=== PATIENT | male | born 1940 | race Caucasian/White ===

== ENCOUNTER 2016-11-16 00:48 | Day surgery (SDC) | payer MEDICARE ==
[2016-11-16] VITALS (13 sets, daily range): BP systolic 105–153; BP diastolic 67–83; PULSE 54–136; RESP 10–15; O2SAT 97–98
[~2016-11-16] VITALS: Ht 181.6 cm; Wt 100.2 kg
[~2016-11-16 00:48] MED LIST: ATRV10T PO; LEVO25TA5 PO; METO25TA99 PO; MULT1CAP33 PO; OMEG500C PO; OMEP20TA24 PO; PSYL1PAC10 PO; TAMS0.4C98 PO; WARF5TAB PO
[2016-11-16 09:24] LABS: BASOPHILS % (AUTO) 0.2 % (0-3); MONOCYTES % (AUTO) 7.3 % (4-12); Mean Corpuscular Hemoglobin 31.6 pg (27.0-35.0); Mean Corpuscular Volume 93.9 fL (81-100); NEUTROPHILS % (AUTO) 59.3 % (40-74); Platelet Count 198 bil/L (150-400)
[2016-11-16] MEDS ORDERED: WARF7.5T PO (09:44)
[2016-11-16 09:49] LABS: INR 2.51 ratio
--- NOTE | 2016-11-16 11:00 | NUR ---
Admitted today for an SVT ablation by Dr Knox. Pt is here today with his - HX of atrial fibrillation - admits in SB today rate 50's.
[2016-11-16] MEDS ORDERED: Heparin 10,000 Unit/1,000 mL NS Premix IV ONE (12:38)
[2016-11-16] MEDS ORDERED: fentaNYL-PF 50 mCg/mL 2 mL Inj ONE (12:57)
[2016-11-16] MEDS ORDERED: HYDROcodone-APAP 5-325 mg Tablet PO PRN (15:05)
[2016-11-16] MEDS ORDERED: Ondansetron 2 mg/mL 2 mL Inj IVPUSH PRN (15:05)
--- NOTE | 2016-11-16 15:30 | NUR ---
Returned from [facility] with a diagnostic attempt to ablate pathways not successful today. Current plan will be to continue with all medications, but changing Metoprolol Succinate ER for Diltazem ER 180 mg PO daily. Script sent by Fax to [facility] pharmacy. NSB-NSR. Family at bedside and have spoken to Dr Knox.
--- NOTE | 2016-11-16 19:08 | NUR ---
Pt discharged to home, ambulatory, accompanied by spouse. Pt's VSS, bilateral groin sites CDI with no bleeding/hematoma noted. Pt's IVs discontinued intact. Pt given all discharge instructions, prescription and medication changes, and follow up appt. Pt had no further questions at time of d/c.
--- NOTE | 2016-11-17 07:40 | PROCED ---
[address] [address] PROCEDURE NOTE PATIENT: FADUMO LINDSEY : 1940 MR#: [id number] ADMIT: 11/16/2016 JOB ID: [id number] DATE OF SERVICE: 11/16/2016 PREOPERATIVE DIAGNOSIS(ES): Paroxysmal supraventricular tachycardia. POSTOPERATIVE DIAGNOSIS(ES): Likely atrial tachycardia. PROCEDURES PERFORMED: 1. Comprehensive electrophysiology study with left atrial pacing recording via the coronary sinus catheter. 2. Arrhythmia provocation with isoproterenol infusion. 3. Fluoroscopy. SURGEON: Lew Knox M.D., electrophysiology attending. CORPORATE DEVELOPMENT ASSOCIATE: Judi Sullivan; Howard Peterson; Rita Wadsworth. SEDATION: Gentle dosing of Versed and fentanyl utilized to an appropriate level of sedation. INDICATION: The patient is a pleasant 52-year-old man with a structurally normal heart who has drug refractory symptomatic paroxysmal SVT. After discussion of the risks and benefits of catheter based mapping he opted to proceed. PROCEDURAL DESCRIPTION: Following informed written consent, the patient was taken to the EP laboratory in a fasting state where he was prepped in usual sterile fashion. The bilateral groins were infiltrated with 1% lidocaine. Then, using modified Seldinger technique, two 6-Swedish sheaths were inserted into the left femoral vein and a 7 and 10-Swedish sheath were inserted into the right femoral vein. Under fluoroscopic guidance, a deflectable decapolar catheter was advanced to the coronary sinus with most proximal bipole at the os of the sinus. A Tay quadripolar catheter was then advanced to the RV apex and a CRD 2 quadripolar catheter was advanced to the His position. A comprehensive electrophysiology study was undertaken with right atrial pacing and recording, right ventricular and His bundle recording, and left atrial pacing and recording through the coronary sinus catheter. At baseline, retrograde conduction was very weak with the aid of isoproterenol. He does have concentric atrial activation with RV pacing. Antegrade conduction showed also very weak AV conduction, but ultimately with the aid of isoproterenol, he did have AV conduction. On a few occasions, he did have evidence of an antegrade jump with a very long AH interval. Aggressive maneuvers were undertaken with burst pacing and programmed extra stimulation from both the ventricle and the atrium. Brief periods of the patient's clinical tachycardia were induced. This was a regular narrow tachycardia at a cycle length of 399 msec with considerable AA wobble. Atrial activation was earliest at the septum. Induction was random. It often spontaneously occurred. Any attempt at RV apical entrainment led to termination of the tachycardia. VA time was long. This was most consistent with an atrial tachycardia. After over 1 hour of aggressive maneuvers both on and off isoproterenol, we decided to not proceed with any ablation given the fact that the patient's tachycardia did not sustained long enough for activation mapping. All catheters and sheaths were removed. Manual pressure was held for hemostasis. The patient was transferred to the [facility] for monitoring, bedrest and discharge. Of note, before catheters were connected and with catheter manipulation, the patient did have bursts of tachycardia with an eccentric activation pattern possibly due to a concealed left-sided pathway. This was not seen again after all catheters were connected. COMPLICATIONS: None. ESTIMATED BLOOD LOSS: Negligible. FINDINGS: 1. Baseline rhythm is sinus with an RR interval 1009 msec, NE 295 msec, QRS 101 msec, QT 410 msec. 2. Intracardiac intervals: AH interval 193 msec, HV 45 msec. 3. Retrograde conduction: VA Wenckebach 560 msec. Atrial activation was concentric. 4. Retrograde: ERP is 560 msec with a [address] 5. Antegrade conduction: AV Wenckebach 520 msec, AV kiko ERP is 480 msec with a [address] Inducible clinical tachycardia that is nonsustaining, most likely atrial tachycardia. The tachycardia did not sustained long enough for activation mapping. No ablation was performed. IMPRESSION: Likely a right atrial tachycardia. PLAN: 1. Bed rest x 4 hours. 2. Switch her beta blockade to diltiazem extended release 180 mg daily. 3. Followup with me in clinic in 3-4 weeks. ATTENDING STATEMENT: Lew Knox M.D., electrophysiology attending was present for and supervised/performed all aspects of this procedure.
== END 2016-11-16 23:59 | disposition home or self-care (01) ==
LOC: SOUO 00:48 → EDSTATUS 11:00 → SOUO 23:59
PROVIDERS: ATTEND Internal Medicine Cardiovascular Disease
DX: I47.1 Supraventricular tachycardia (principal); Z79.01 Long term (current) use of anticoagulants; N40.1 Benign prostatic hyperplasia with lower urinary tract symptoms; N13.8 Other obstructive and reflux uropathy; E78.5 Hyperlipidemia, unspecified
CPT/HCPCS: 36415; 80048; 85025; 85610; 93005; 93620; 93621; 93623; 99152; 99153; C1730; J1644; J2250; J3010